=== PATIENT | male | born 1995 | race African-American/Black ===

== ENCOUNTER 2022-07-22 16:17 | Emergency (ER) | payer MEDICAID, OTHER ==
[~2022-07-22] VITALS: Ht 190.5 cm; Wt 111.1 kg
[2022-07-22 16:43] VITALS: BP 152/91
[2022-07-22] MEDS ORDERED: AMLO-212 PO (17:00)
== END 2022-07-22 17:27 | disposition home or self-care (01) ==
LOC: ER 16:27
DX: R03.0 Elevated blood-pressure reading, without diagnosis of hypertension (principal); R51.9 Headache, unspecified; Z79.899 Other long term (current) drug therapy

== ENCOUNTER 2024-09-15 19:08 | Emergency (ER) | payer MEDICAID ==
[~2024-09-15] VITALS: Ht 190.5 cm; Wt 108.9 kg
[~2024-09-15 19:08] MED LIST: AMLO-212 PO
[2024-09-15 20:35] LABS: BASOPHILS # (AUTO) 0.1 K/uL (0.0-0.2); BASOPHILS % (AUTO) 0.9 % (0.0-2.0); EOSINOPHILS # (AUTO) 0.2 K/uL (0.0-0.7); EOSINOPHILS % (AUTO) 1.9 % (0.0-6.0); HEMATOCRIT 45 % (39-51); HEMOGLOBIN 15.1 g/dL (13.5-17.5); LYMPHOCYTES # (AUTO) 2.3 K/uL (0.8-4.8); LYMPHOCYTES % (AUTO) 27.6 % (20.0-44.0); MEAN CORPUSCULAR HEMOGLOBIN 29 PG (26.0-33.0); MEAN CORPUSCULAR HGB CONC 33 g/dl (31.0-36.0); MEAN CORPUSCULAR VOLUME 86 fL (80-96); MONOCYTES # (AUTO) 0.6 K/uL (0.1-1.30); MONOCYTES % (AUTO) 7.6 % (2.0-12.0); NEUTROPHILS # (AUTO) 5.2 K/uL (1.8-8.9); PLATELET COUNT (AUTO) 307 K/uL (150-450); RED BLOOD CELL COUNT(AUTO) 5.27 MIL/uL (4.5-6.0); RED CELL DISTRIBUTION WIDTH 13.9 % (11.5-15.0); WHITE BLOOD COUNT (AUTO) 8.4 K/uL (4.3-11.0)
[2024-09-15] MEDS ORDERED: IV NS 0.9% 250 ML IV ONE (20:45)
[2024-09-15] MEDS ORDERED: IOHEXOL-350 100 ML VIAL IV ONE (20:45)
[2024-09-15 20:58] LABS: CALCIUM, SERUM 9.6 mg/dL (8.5-10.1); CARBON DIOXIDE 29 mmol/L (21-32); CHLORIDE 101 mmol/L (98-107); CREATININE 1.4 mg/dL (0.6-1.3); GLUCOSE 102 mg/dL (74-106); POTASSIUM 3.6 mmol/L (3.5-5.1); SODIUM SERUM 140 mmol/L (136-145); UREA NITROGEN, BLOOD 19 mg/dL (7-18)
[2024-09-15] MEDS ORDERED: HYDROCODONE/APAP 5/325MG TABLET ONE (21:31)
[2024-09-15] MEDS: HYDROCODONE/APAP 5/325MG TABLET PO ONE (21:34)
[2024-09-15 22:59] VITALS: BP 121/71; TEMP 98; O2SAT 97
== END 2024-09-15 22:59 | disposition home or self-care (01) ==
LOC: ER 19:11
DX: R07.2 Precordial pain (principal); I71.21 Aneurysm of the ascending aorta, without rupture; F17.200 Nicotine dependence, unspecified, uncomplicated; I10 Essential (primary) hypertension; Z79.899 Other long term (current) drug therapy
CPT/HCPCS: 99285; 71275; 71045; 93005 ×2; 85025; 80048; 36415; 84484; J7050; Q9967